=== PATIENT | male | born 1990 | race Caucasian/White ===

== ENCOUNTER 2022-05-31 19:00 | Emergency (ER) | payer SELFPAY ==
[2022-05-31] MEDS ORDERED: Ibuprofen 800 MG Tab PO ONE (19:34)
== END 2022-05-31 21:40 | disposition home or self-care (01) ==
LOC: MW.ED 19:00
DX: S09.90XA Unspecified injury of head, initial encounter (principal); S69.91XA Unspecified injury of right wrist, hand and finger(s), initial encounter; M54.2 Cervicalgia; Y04.0XXA Assault by unarmed brawl or fight, initial encounter
CPT/HCPCS: 70450; 70486; 72125; 73130; 99284; A9270; 99283